=== PATIENT | female | born 1985 | race African-American/Black ===

== ENCOUNTER 2018-04-11 12:58 | Outpatient (CLI) | payer MEDICAID ==
--- NOTE | 2018-04-11 16:00 | MRI ---
MRI LUMBAR SPINE NONCONTRAST: DATE: 04/11/18 HISTORY: 32-year-old female with: M54.41, lumbago with sciatica, right side. Patient states that she is experiencing recent urinary incontinence and recent muscle weakness in low er extremity, with inability to walk and stand. Dr. Paez discussed the symptoms and findings on the MRI by telephone with Dr. Saha at 1418 hours o n 04/11/18. The patient was instructed to contact Dr. Saha's office today for further instruction s. COMPARISON: None. FINDINGS: There is an approximately 2.5 x 1.5 cm T2-hyperintense and T1-hypointense lesion in the right renal p arenchyma posterolaterally. This is statistically mostly likely to represent a renal cyst, especially in a young patient. For the purposes of this report, it will be assumed that there are five lumbar-type vertebrae. Verteb ral body heights are maintained. Bone marrow signal is normal. The cauda equina is arranged in a symm etrical, normal distribution throughout the thecal sac superior to the L4-5 level. The conus medullar is terminates at L1. The T12-L1, L1-2, L2-3, and L3-4 levels are all completely normal. L4-5: Disc desiccation and moderate disc space narrowing. Large central and bilateral central disc e xtrusion, asymmetrically larger at the right paracentral and right lateral components of the spinal c anal, with inferior migration of extruded disc material to the lower pedicle level, almost reaching t he neural foraminal level of L5-S1 (this disc extrusion does not extend into any of the neural forami na). The extruded disc herniation completely effaces the right anterolateral aspect of the thecal sac and spinal canal, occupying approximately 50-70% of the cross-sectional area of it, compressing mult iple nerve roots, including right L5, right S1, and possibly right S2 nerve roots. The contralateral left L5 nerve root is also compressed by the left paracentral and left lateral components of the disc extrusion. There is no high grade neural foraminal stenosis. No high grade degenerative facet change s. L5-S1: Moderate to severe disc space narrowing. Disc desiccation. Diffuse disc bulge. Broad based di sc-osteophytic bar complex is asymmetrically larger at the left paracentral and left lateral aspects, causing chronic moderate left neural foraminal stenosis. Little or no right neural foraminal stenosi s and no central spinal canal stenosis. There is left lateral recess stenosis, and the disc-osteophyt e complex does abut the left S1 nerve root. No high grade degenerative facet changes. IMPRESSION: 1. Large, extruded disc herniation at L4-5 compressing multiple nerve roots, mostly in the right sarah e of the spinal canal. 2. Degenerative disc disease at L4-5 and L5-S1. CODE CR. JN Behzad POS: ABILIO
== END 2018-04-11 12:59 | disposition home or self-care (01) ==
LOC: MRI 12:58
PROVIDERS: ATTEND Family Medicine
DX: M54.41 Lumbago with sciatica, right side (principal); R20.2 Paresthesia of skin; G89.29 Other chronic pain; M51.26 Other intervertebral disc displacement, lumbar region; M51.36 Other intervertebral disc degeneration, lumbar region; M51.37 Other intervertebral disc degeneration, lumbosacral region
CPT/HCPCS: 72148

== ENCOUNTER 2018-04-26 12:40 | Outpatient (CLI) | payer MEDICAID, OTHER ==
--- NOTE | 2018-04-26 14:06 | RAD ---
THREE VIEWS LUMBAR SPINE WITH FLEXION AND EXTENSION VIEWS: Date: 04-26-18 History: Lumbago with right sided numbness. FINDINGS: Based on lateral imaging, there appear to be five non-rib bearing lumbar type vertebral bodies. The v ertebral body heights are within normal limits. There is narrowing of the L5-S1 intervertebral disc s pace with osteophytes seen at this level. There is slight height loss of the intervertebral disc spac e anteriorly at the L4-5 level compared to posteriorly. No significant anterolisthesis is present at any level. No abnormal translational motion is seen between the flexion and extension views. Surgical clips are seen overlying the upper abdomen. IMPRESSION: Degenerative changes of the lower lumbar spine. POS: ABILIO
== END 2018-04-26 12:41 | disposition home or self-care (01) ==
LOC: SCSMRI 12:40 → TBSIIMAG 12:41
PROVIDERS: ATTEND Neurological Surgery
DX: M47.22 Other spondylosis with radiculopathy, cervical region (principal); M51.26 Other intervertebral disc displacement, lumbar region
CPT/HCPCS: 72100

== ENCOUNTER 2018-06-06 08:01 | Observation (INO) | payer OTHER ==
[2018-06-03 13:42] VITALS: BMI 33.6
--- NOTE | 2018-06-06 08:13 | HP ---
HISTORY OF PRESENT ILLNESS: This is a 32-year-old female, who presents with back and right leg pain. The patient states she has had [id number] when she slept on the couch, she woke with significant back pain and couldn't walk. She had some improvement with time. She has seen chiropractor and acupuncture with some benefit. Last year she was lifting her toodler and she felt excruciating pain in the low back as well as tingling and burning down her right leg.When she went the ED she was diagnosed with pyelonephritis. she states that she can barely walk, the entire leg feels weak and she feels like there is fire all over the right leg. REVIEW OF SYSTEMS: A 10-point review of systems has been negative, other than stated in the above HPI. PAST MEDICAL HISTORY: Abuse, alcohol/drug use, anxiety, chronic pain, depression, HUMPHREYS, Stomach ulcers PAST SURGICAL HISTORY: in 2015, cholecystectomy in 2015. Hospitalizations: pyelonephritis in 2018. FAMILY HISTORY: Father is , diagnosed with cancer. Mother is alive, diagnosed with hypertension. SOCIAL HISTORY: The patient is a former smoker. Pt. uses Alcohol and other drugs MEDICATIONS: None. ALLERGIES: NO KNOWN DRUG ALLERGIES. PHYSICAL EXAMINATION: CONSTITUTIONAL: Well appearing, well nourished, alert. NEUROLOGIC: Mental status; oriented to time, place, and person. Normal attention, span, and concentration. Speech is spontaneous and fluent. Comprehension is intact. Content appropriate. Normal fund of knowledge. Cranial nerves; pupils are equal, round, and reactive to light. Extraocular movements intact. Hearing is intact. Lower extremity: strength normal in lower extremities. Muscle tone and bulk normal in lower extremities. 5/5 bilateral strength IP, 4-/5 right KE, KF, DF, EHL, Right L5 radiculopathy. Positive single leg raise. Rotation of bilateral hips normal. Tender to palpation at L5. and Paraspinals. Sensory; decreased sensation along L5 right dermatome RESPIRATORY: Normal work of breathing on room air. IMAGING: MRI, large L4-L5 herniated nucleus pulposus, right greater than left stenosis at L4, L5, and S1. Moderate ASSESSMENT AND PLAN: Lumbar herniated nucleus pulposus with radiculopathy. Dr. Ramos has offered surgery, laminectomy L4-L5. Obtained informed consent. We have discussed the indications, risks, benefits, alternatives, and expected results from the surgery. The risks discussed included, but were not limited to, bleeding, infection, CSF leak, nerve damage, weakness, incontinence, cauda equina injury, arachnoiditis, paralysis, ventilator dependence, wheelchair dependence, loss of vision, cardiopulmonary complications of anesthesia or . Long-term complications discussed included, but were not limited to degradation of surrounding disks and the need for further surgery. The patient states that she understands the risks and is willing to proceed. Job ID: [id number] [facility]
[2018-06-06 08:51] LABS: #Basophils 0.1 thou/uL (0.0-0.2); #Eosinphils 0.1 thou/uL (0.0-0.7); #Lymphocytes 2.1 thou/uL (1.20-3.40); #Monocytes 0.4 thou/uL (0.11-0.59); #Neutrophils 7.5 thou/uL (1.40-6.50); %Basophils 0.6 % (0.0-1.0); %Eosinophils 0.6 % (0.0-10.0); %Monocytes 3.6 % (0.0-10.0); %Neutrophils 74.3 % (42.0-75.0); Hemoglobin 12.9 g/dL (12.0-16.0); Mean Corpuscular HGB CONC 32.9 g/dL (32.0-36.0); Mean Corpuscular Hemoglobin 29.5 pg (27.0-31.0); Mean Corpuscular Volume 89.6 fL (78.0-98.0); Mean Platelet Volume 6.6 fL (7.4-10.4); Platelet Count 295 thou/uL (130-400); RBC Distribution Width 11.5 % (11.5-14.5); Red Blood Cell (RBC) Count 4.37 mill/uL (4.20-5.40); White Blood Cell (WBC) Count 10.1 thou/uL (4.8-10.8)
[2018-06-06 08:57] LABS: PTT 30.9 SEC (22.9-36.1); Prothrombin Time 13.2 SEC (12.0-14.7)
[2018-06-06] MEDS ORDERED: Sodium Chloride 0.9% 10 ML ONE (11:31)
[2018-06-06] MEDS ORDERED: Thrombin 5000 UNITS/5 ML VIAL ONE (11:31)
[2018-06-06] MEDS ORDERED: Bupivacaine HCl 0.5%/Epinephrine 1:200,000/PF 30 ml Vial ONE (11:31)
[2018-06-06] MEDS ORDERED: Fentanyl 100 MCG/2 ML VIAL ONE ×3 (11:57→15:06)
[2018-06-06] MEDS ORDERED: Midazolam HCl 2 mg/2 ml Vial ONE (12:03)
[2018-06-06] MEDS ORDERED: Fentanyl 250 MCG/5 ML VIAL ONE (12:03)
[2018-06-06] MEDS ORDERED: Dexamethasone 20 MG/5 ML VIAL ONE (14:34)
[2018-06-06] MEDS ORDERED: Glycopyrrolate 0.2 MG/ML 5 ML SYRINGE ONE (14:34)
[2018-06-06] MEDS ORDERED: Lidocaine 1% PF 5 ML VIAL ONE (14:34)
[2018-06-06] MEDS ORDERED: PROPOFOL 200 MG/20 ML VIAL ONE (14:34)
[2018-06-06] MEDS ORDERED: Rocuronium Bromide 10 MG/ML (10ML VIAL) ONE (14:34)
[2018-06-06] MEDS ORDERED: Ondansetron PF 4 MG/2 ML Vial ONE (14:34)
[2018-06-06] MEDS ORDERED: HYDROmorphone 2 MG/ML VIAL ONE (15:35)
[2018-06-06] MEDS ORDERED: diphenhydrAMINE 50 MG/ML VIAL ONE (15:50)
[2018-06-06] MEDS ORDERED: traMADol HCl 50 MG TAB ONE (17:55)
--- NOTE | 2018-06-06 18:07 | OP ---
DATE OF PROCEDURE: 06/06/2018 DIRECTOR OF RESEARCH CENTER: Kimberli Pires PA-C. PREOPERATIVE INDICATION: Treat pain and prevent neurological deterioration. PREOPERATIVE DIAGNOSIS: Intervertebral disk herniation, right L4-L5 with L5 radiculopathy. POSTOPERATIVE DIAGNOSIS: Intervertebral disk herniation, right L4-L5 with L5 radiculopathy. PROCEDURES PERFORMED: Right L4-L5 microdiskectomy, operating microscope. PREOPERATIVE MEDICATION: Ancef 2 g IV. DRAIN NUMBER: Zero. DRAIN TYPE: None. DESCRIPTION OF PROCEDURE: The patient was brought to the operating room. General endotracheal anesthesia was induced. The patient was positioned on the operating table with her chest and hips supported by gel-filled chest rolls. A lateral fluoro radiograph was used to plan our incision. The lumbar skin was sterilely prepped and draped. We opened the midline incision with a 10 blade knife and controlled bleeding with bipolar and monopolar cautery. We used monopolar cautery to dissect through subcutaneous tissues to the thoracodorsal fascia. We incised the fascia just right of the midline and reflected the paraspinal muscles off the spinous process and laminae of L4 and L5. A self-retaining retractor was placed and a lateral fluoro radiograph confirmed the levels upon which we were operating. We then used Kerrison rongeurs to fashion a partial hemilaminectomy, medial facetectomy, and foraminotomy at L4-L5 on the right side. The operative microscope was brought into the field. Under microscopic magnification and using microsurgical techniques, we removed the yellow ligament in piecemeal fashion. We identified both the common thecal sac and the L5 nerve root. We performed a foraminotomy over the nerve root. We removed the superior 7-8 mm of the right side of the L5 lamina. We widened our hemilaminectomy by biting up more bone medially. We gently retracted the common thecal sac and the L5 nerve root medially. There was a disk protrusion and a hole in the annulus fibrosus. There is some cystic degeneration of the previously herniated intervertebral disk. Most of the ventral epidural space under the L5 nerve root at some granulation tissue and fluid, but no very large disk herniation. The opening of the annulus was quite large. We reached through the annulus into the intervertebral disk space. We removed fragments of disk that were loose. We left this behind that was firmly adherent to the endplates. At the completion of our diskectomy, the L5 nerve root was widely decompressed. We performed a foraminotomy over the exit point. It could easily be moved medially and laterally, eventually dorsally without impingement. The common thecal sac was likewise well decompressed. We irrigated copiously with bacitracin irrigation. We infused local anesthetic in the paraspinal muscles. We closed the wound in anatomical layers. We applied a sterile dressing. This was a clean case, no contamination. Job ID: [id number]
[2018-06-06] MEDS ORDERED: tiZANidine HCl 4 MG TAB ONE (18:54)
[2018-06-06] MEDS ORDERED: Meperidine HCl/PF 25 MG/ML VIAL ONE (21:13)
[2018-06-06] MEDS ORDERED: traMADol HCl 50 MG TAB PO PRN (22:46)
[2018-06-06] MEDS ORDERED: Bisacodyl 10 MG SUPP PR PRN (22:46)
[2018-06-06] MEDS ORDERED: Meperidine HCl/PF 25 MG/ML VIAL SLOW IVP PRN (22:46)
[2018-06-06] MEDS ORDERED: diphenhydrAMINE 25 MG CAP PO PRN (22:46)
[2018-06-06] MEDS ORDERED: Milk Of Magnesia 30 ML UDCUP PO PRN (22:46)
[2018-06-06] MEDS ORDERED: Prochlorperazine 10 MG/2 ML VIAL IM PRN (22:46)
[2018-06-06] MEDS ORDERED: diphenhydrAMINE 50 MG/ML VIAL IVP PRN (22:46)
[2018-06-06] MEDS ORDERED: Acetaminophen 325 MG TAB PO PRN (22:46)
[2018-06-06] MEDS ORDERED: Acetaminophen/Codeine 30-300mg Tablet PO PRN ×2 (22:46)
[2018-06-06] MEDS ORDERED: Mag-Al 1200 mg/1200 mg/30 ML UDCUP PO PRN (22:46)
[2018-06-06] MEDS ORDERED: Ondansetron PF 4 MG/2 ML Vial IM PRN (22:46)
[2018-06-06] MEDS ORDERED: Acetaminophen 650 MG Suppository PR PRN (22:46)
[2018-06-06] MEDS: Sodium Chloride 0.9% 1,000 ML IV SCH (22:53)
[2018-06-06] MEDS ORDERED: CEFAZOLIN 2 GM in Premix Bag 1 BAG IVPB SCH (23:00)
[2018-06-07] MEDS: tiZANidine HCl 4 MG TAB PO PRN ×3 (03:14→18:09)
[2018-06-07] MEDS: traMADol HCl 50 MG TAB PO PRN ×3 (03:14→18:09)
--- NOTE | 2018-06-07 06:50 | PRG ---
DATE OF SERVICE: 06/07/2018 Ms. Burdick is one day out from a microdiskectomy. She had difficulty with walking yesterday and wobbly legs, but she feels better this morning. In fact, she allows me to examine her L5 musculature without the pain she had yesterday. She has good strength in the anterior tib and EHL. She has slightly decreased sensation in the large toe on the right compared to the left, but it has improved since before surgery. She is anxious to get home today and we can make that happen. Job ID: [id number] [facility]
[2018-06-07] MEDS: Sodium Chloride 0.9% 1,000 ML IV SCH (11:19)
[2018-06-07 16:06] VITALS: BP 95/59; TEMP 98.9
== END 2018-06-07 18:50 | disposition home or self-care (01) ==
LOC: SDC 08:01 → SURG B 21:16
PROVIDERS: ADMIT Neurological Surgery; ATTEND Neurological Surgery
PROC: 0SB20ZZ Excision of Lumbar Vertebral Disc, Open Approach (ICD-10-PCS; principal; 2018-06-07)
DX: M51.16 Intervertebral disc disorders with radiculopathy, lumbar region (principal); M48.061 Spinal stenosis, lumbar region without neurogenic claudication; M48.07 Spinal stenosis, lumbosacral region; M51.06 Intervertebral disc disorders with myelopathy, lumbar region; F41.9 Anxiety disorder, unspecified; F32.9 Major depressive disorder, single episode, unspecified; G47.01 Insomnia due to medical condition; Z87.891 Personal history of nicotine dependence; Z79.899 Other long term (current) drug therapy; Z88.5 Allergy status to narcotic agent
CPT/HCPCS: 36415; 76000; 85025; 85610; 85730; 96374; 96375; G0378; J0670; J0780; J1100; J1170; J1200; J2001; J2175; J2250; J2405; J2704; J3010; J3370; J3490

== ENCOUNTER 2022-10-30 11:50 | Outpatient (CLI) | payer OTHER ==
[2022-10-30 13:42] LABS: Hematocrit 40.8 % (34.9-44.5); Hemoglobin 13.6 g/dL (12.0-15.5); Mean Corpuscular HGB CONC 33.3 g/dL (32.0-36.0); Mean Corpuscular Hemoglobin 29.3 pg (27.0-33.0); Mean Corpuscular Volume 87.9 fl (81.6-98.3); Mean Platelet Volume 9.6 fl (7.4-10.4); Platelet Count 374 10x3/uL (150-450); RBC Distribution Width 12.7 % (11.5-14.5); Red Blood Cell (RBC) Count 4.64 10x6/uL (3.90-5.03); White Blood Cell (WBC) Count 8.6 10x3/uL (3.5-10.5)
[2022-10-30 14:03] LABS: BHCG - Serum Negative (NEGATIVE); Pregs Control Background? CLEAR/WHITE (CLR/WHITE); Pregs Control Bar Appear? YES (CONTROL BAR)
[2022-10-30 14:09] LABS: PTT 29.1 sec (22.0-33.0); Prothrombin Time 10.3 sec (9.5-12.1)
== END 2022-10-30 11:51 | disposition home or self-care (01) ==
LOC: LABBT 11:50
PROVIDERS: ATTEND Neurological Surgery
DX: Z01.812 Encounter for preprocedural laboratory examination (principal); M51.26 Other intervertebral disc displacement, lumbar region
CPT/HCPCS: 84703; 85027; 85610; 85730

== ENCOUNTER 2022-11-02 06:19 | Day surgery (SDC) | payer OTHER ==
[2022-10-30 12:36] VITALS: BMI 40.7
[2022-11-02] MEDS ORDERED: EPINEPHrine 1 MG/ML AMP ONE (06:34)
[2022-11-02] MEDS ORDERED: Bupivacaine PF 0.5% 30 ML VIAL ONE (06:34)
[2022-11-02] MEDS ORDERED: Vancomycin 1 GM VIAL ONE (06:34)
[2022-11-02] MEDS ORDERED: Thrombin 5000 UNITS/5 ML VIAL ONE (06:34)
[2022-11-02] MEDS ORDERED: CEFAZOLIN 2 GM VIAL ONE (06:54)
[2022-11-02] MEDS ORDERED: Midazolam HCl 2 mg/2 ml Vial ONE (06:54)
[2022-11-02] MEDS ORDERED: Sodium Chloride 0.9% 100 ML ONE (06:54)
[2022-11-02] MEDS ORDERED: Lidocaine 1% PF 5 ML VIAL ONE (07:10)
[2022-11-02] MEDS ORDERED: Dexamethasone 20 MG/5 ML VIAL ONE (07:10)
[2022-11-02] MEDS ORDERED: Ketorolac Tromethamine 30 MG/ML VIAL ONE (07:10)
[2022-11-02] MEDS ORDERED: Albuterol HFA (OR) 200 PUFF INH ONE (07:10)
[2022-11-02] MEDS ORDERED: Ondansetron PF 4 MG/2 ML Vial ONE (07:10)
[2022-11-02] MEDS ORDERED: PROPOFOL 200 MG/20 ML VIAL ONE (07:10)
[2022-11-02] MEDS ORDERED: Rocuronium Bromide 10 MG/ML (10ML VIAL) ONE (07:10)
[2022-11-02] MEDS ORDERED: fentaNYL 50 mcg/mL 1 mL Vial ONE ×3 (07:14→10:06)
[2022-11-02] MEDS ORDERED: MINERAL OIL/WHITE PETROLATUM 3.5 GM TUBE ONE (07:25)
[2022-11-02] MEDS ORDERED: SUGAMMADEX SODIUM 200 MG/2 ML VIAL ONE (08:44)
[2022-11-02] MEDS ORDERED: HYDROmorphone 0.5 MG/0.5 ML SYRINGE ONE ×2 (10:17→10:29)
[2022-11-02] MEDS ORDERED: diphenhydrAMINE 50 MG/ML VIAL ONE (10:50)
== END 2022-11-02 14:45 | disposition home or self-care (01) ==
LOC: SDC 06:19
PROVIDERS: ATTEND Neurological Surgery
PROC: 01NB0ZZ Release Lumbar Nerve, Open Approach (ICD-10-PCS; principal; 2022-11-02)
DX: M51.16 Intervertebral disc disorders with radiculopathy, lumbar region (principal); F41.9 Anxiety disorder, unspecified; F32.A Depression, unspecified; F12.90 Cannabis use, unspecified, uncomplicated; Z88.5 Allergy status to narcotic agent; Z79.899 Other long term (current) drug therapy
CPT/HCPCS: J0171; J1100; J1170; J1200; J1885; J2250; J2405; J2704; J3010; J3370; J3490; S0020

== ENCOUNTER 2023-01-18 12:47 | Outpatient (CLI) | payer OTHER | END 2023-01-18 12:48 | disposition home or self-care (01) | LOC: SCSMRI 12:47 | PROVIDERS: ATTEND Neurological Surgery | DX: M51.26 Other intervertebral disc displacement, lumbar region (principal); M47.816 Spondylosis without myelopathy or radiculopathy, lumbar region; M47.817 Spondylosis without myelopathy or radiculopathy, lumbosacral region | CPT/HCPCS: 72110; 72158 ==